=== PATIENT | female | born 2000 | race Caucasian/White ===

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

== ENCOUNTER → 2023-05-30 | Outpatient (CLI) | payer BC | END | disposition home or self-care (01) | LOC: LAB 17:36 → LAB SHORT 17:36 | DX: R30.0 Dysuria (principal) | CPT/HCPCS: 87086 ==